=== PATIENT | male | born 1980 | race Caucasian/White ===

== ENCOUNTER 2019-01-24 01:35 | Inpatient (IN) | payer SELFPAY ==
[2019-01-24 02:03] LABS: Bilirubin Negative (Negative); Blood, Urine Large (Negative); Glucose, Urine (Dipstick) Negative (Negative); Leukocyte Large (Negative); Nitrite Positive (Negative); Protein, Urine (Dipstick) 100 mg/dL (Neg-Trace); Urobilinogen 0.2 mg/dL (Less than 2)
[2019-01-24 02:04] LABS: Clarity Turbid (Clear)
[2019-01-24 02:06] LABS: Mean Corpuscular Volume 92.3 fL (78.0-98.0)
[2019-01-24 02:09] LABS: Bacteria/HPF 4+ HPF (None Seen); RBC/HPF Greater than 50 HPF (0-3); Squamous Epithelial None Seen HPF (0-3); WBC/HPF Greater than 50 HPF (0-3)
[2019-01-24] MEDS ORDERED: MEROPENEM 1 GM/50 ML 1 GM in Premix Bag 1 BAG IVPB SCH (02:15)
[2019-01-24 02:26] LABS: ALT (SGPT) 19 U/L (8-55); AST (SGOT) 19 U/L (5-34); Albumin 4.2 g/dL (3.5-5.0); Alkaline Phosphatase 74 U/L (40-150); Anion Gap 14 mmol/L (10-20); BUN (Urea Nitrogen) 14 mg/dL (8.9-20.6); Bilirubin, Total 0.7 mg/dL (0.2-1.2); Calc. Creatinine Clearance 0 mL/min (70-130); Calcium 9.5 mg/dL (7.8-10.44); Carbon Dioxide 23 mmol/L (22-29); Chloride 99 mmol/L (98-107); Estimated GFR-MDRD 80; Globulin 3.5 g/dL (2.4-3.5); Glucose 152 mg/dL (70-105); Potassium 3.5 mmol/L (3.5-5.1); Protein, Total 7.7 g/dL (6.0-8.3); Sodium 132 mmol/L (136-145)
[2019-01-24 02:28] LABS: Band 13 % (5-11); Hemoglobin 12.6 g/dL (14.0-18.0); Lymphocytes 6 % (21-51); MDiff Complete? YES; Mean Corpuscular Hemoglobin 32.3 pg (27.0-31.0); Mean Platelet Volume 8.2 fL (7.4-10.4); Monocytes 8 % (0-10); Neutrophil 73 % (42-75); Platelet Count 282 thou/uL (130-400); Platelet Morphology Comment Appears Adequate; RBC Distribution Width 11.1 % (11.5-14.5); Red Blood Cell (RBC) Count 3.91 mill/uL (4.70-6.10); White Blood Cell (WBC) Count 20.5 thou/uL (4.8-10.8)
[2019-01-24 02:29] LABS: Amphetamine Detected (NotDetected); Barbiturates Screen Not Detected (NotDetected); Benzodiazepine Screen Not Detected (NotDetected); Cocaine Metabolite Screen Not Detected (NotDetected); Medtox Control Line Valid? VALID (VALID); Medtox Reader # READER 4; Methadone Not Detected (NotDetected); Methamphetamine Detected (NotDetected); Opiate Screen Detected (NotDetected); Oxycodone Screen Not Detected (NotDetected); Phencyclidine (PCP) Not Detected (NotDetected); THC/Cannabinoid Screen Not Detected (NotDetected); Tricyclic Screen Not Detected (NotDetected)
[2019-01-24] MEDS ORDERED: Acetaminophen 500 MG TAB ONE ×2 (03:03)
--- NOTE | 2019-01-24 07:40 | ULT ---
PRELIMINARY REPORT/[facility]/EMERGENCY AFTER HOURS PROCEDURE PROCEDURE INFORMATION: Exam: US Scrotum Exam date and time: 01/24/2019 2:24 AM Clinical history: 38 years old, male; Edema; Scrotum pain; Prior surgery; Surgery date: <1 month; Surgery type: Penile reconstruction TECHNIQUE: Imaging protocol: Real-time ultrasound of the scrotum and contents with color Doppler and image documentation. COMPARISON: No relevant prior studies available. FINDINGS: The testicles are within normal limits and relatively symmetrical in size. Right: No visible intratesticular mass. Duplex Doppler evaluation, with color flow and spectral waveform analysis, demonstrates intratesticular arterial and venous blood flow. 2 or 3 small cysts in the head of the right epididymis, largest measures 9 x 5 mm. The right epididymis is otherwise essentially unremarkable in size and appearance. There is a small amount of right scrotal fluid. Left: No visible intratesticular mass. Duplex Doppler evaluation, with color flow and spectral waveform analysis, demonstrates intratesticular arterial and venous blood flow. The left epididymis is normal in size and appearance. There is a small amount of left scrotal fluid. IMPRESSION: 1. No evidence for torsion by Doppler ultrasound. 2. No findings to suggest epididymitis. 3. Small bilateral hydroceles. 4. Other details discussed above. Thank you for allowing us to participate in the care of your patient. Dictated and Authenticated by: José Manuel Mccormick MD 01/24/2019 3:03 AM Central Time ([place] & [place]) SCROTAL SONOGRAM WITH DUPLEX EVALUATION PERFORMED ON AN EMERGENCY BASIS: Date: 01/24/19 Time: 0227 hours HISTORY: Scrotal pain. FINDINGS: Agree with the preliminary report by Dr. Mccormick from [facility]. No evidence of testicular mass or torsion. Good color and spectral Doppler flow. Small bilateral hydroceles. Code QA Transcribed Date/Time: 01/24/2019 7:53 AM
--- NOTE | 2019-01-24 07:50 | RAD ---
Portable frontal chest radiograph: 01/24/2019 COMPARISON: None HISTORY: Pain and fever FINDINGS: Lungs are clear. Heart and mediastinal contours appear within normal limits. IMPRESSION: No acute findings.
[2019-01-24] MEDS ORDERED: Morphine 4 MG/ML VIAL ONE (10:32)
[2019-01-24] MEDS ORDERED: Acetaminophen 500 MG TAB PO PRN (10:54)
[2019-01-24] MEDS ORDERED: Ondansetron ODT 4 MG TAB PO PRN (10:54)
[2019-01-24] MEDS ORDERED: Ondansetron PF 4 MG/2 ML Vial IVP PRN (10:54)
[2019-01-24] MEDS ORDERED: Ketorolac Tromethamine 30 MG/ML VIAL ONE (10:58)
[2019-01-24] MEDS ORDERED: Ketorolac Tromethamine 30 MG/ML VIAL IVP SCH (11:00)
[2019-01-24] MEDS ORDERED: HYDROcodone/Acetaminophen 5/325 mg Tablet ONE (13:09)
[2019-01-24] MEDS ORDERED: cefTRIAXone\\ROCEPHIN 2 GM VIAL ONE (13:09)
[2019-01-24] MEDS: HYDROcodone/Acetaminophen 5/325 mg Tablet PO PRN (13:17)
[2019-01-24] MEDS: cefTRIAXone\\ROCEPHIN 2 GM in Sodium Chloride 0.9% 100 ML IVPB SCH (13:18)
[2019-01-24] MEDS: Morphine 4 MG/ML VIAL SLOW IVP SCH ×3 (15:14→20:41)
[2019-01-24 15:19] VITALS: BMI 24.4
[2019-01-24] MEDS: Ketorolac Tromethamine 30 MG/ML VIAL IVP SCH ×2 (16:00→17:33)
[2019-01-24] MEDS ORDERED: Pharmacy to Dose 1 EACH VANCOMYCIN IVPB PRN (16:28)
--- NOTE | 2019-01-24 16:44 | HP ---
PRIMARY CARE PROVIDER: [facility]. CHIEF COMPLAINT: Penile pain and fever. HISTORY OF PRESENT ILLNESS: This is a 38-year-old male, who is status post penile fracture, status post primary repair at [facility] in [place], [place] in the last 2 weeks. The patient states he was discharged from [facility] with a Campbell catheter in place and given instructions for removal of the catheter in 2 weeks, which fell within the last 4 to 5 days prior to this evaluation. The patient states he was unable to get back to the hospital in [facility] Clinic for removal of the catheter and noted increasing pain in the bladder and scrotum. The patient was evaluated at [facility] on 01/19/2019, and diagnosed with urinary tract infection with indwelling Campbell catheter. The patient was placed on ciprofloxacin, which he states he completed the antibiotic course. The patient had increasing pain in the scrotum, lower pelvis with some drainage noted through his urethra. The patient did not remove the catheter, however, was told to go to the emergency room for evaluation and potential removal of the catheter since he was unable to be seen in followup at [facility]. The patient admitted to fever, discharge from the urethra as well as scrotal pain. In the emergency room, the patient underwent general evaluation, meeting sepsis criteria and placed on aggressive IV fluid hydration in addition to receiving IV meropenem, acetaminophen, and morphine sulfate. The patient continued to have increased pain in the scrotal region and penis requiring further IV morphine sulfate for relief. The patient was referred to the Hospitalist Service for admission. PAST MEDICAL HISTORY: 1. Penile fracture, status post primary repair. 2. Drug abuse with methamphetamine. PAST SURGICAL HISTORY: Status post penile fracture repair with insertion of Campbell catheter. CURRENT MEDICATIONS: Ciprofloxacin, completed antibiotic therapy. ALLERGIES: NO KNOWN DRUG ALLERGIES. FAMILY HISTORY: No inheritable diseases per the patient report. SOCIAL HISTORY: The patient resides in [facility]. Works in building construction. Positive use of methamphetamines. No tobacco or alcohol use. REVIEW OF SYSTEMS: CONSTITUTIONAL: Negative for weight loss or gain, ability to conduct usual activities. SKIN: Negative for rash, itching. EYES: Negative for double vision, pain. ENT/MOUTH: Negative for nose bleeding, neck stiffness, pain, tenderness. CARDIOVASCULAR: Negative for palpitations, dyspnea on exertion, orthopnea. RESPIRATORY: Negative for shortness of breath, wheezing, cough, hemoptysis, fever or night sweats. GASTROINTESTINAL: Negative for poor appetite, abdominal pain, heartburn, nausea, vomiting, constipation, or diarrhea. GENITOURINARY: Negative for urgency, frequency, dysuria, nocturia. MUSCULOSKELETAL: Negative for pain, swelling. NEUROLOGIC/PSYCHIATRIC: Negative for anxiety, depression. ALLERGY/IMMUNOLOGIC: Negative for skin rash, bleeding tendency. Otherwise, negative except as stated per HPI. PHYSICAL EXAMINATION: VITAL SIGNS: On admission, blood pressure 120/62, pulse 118, respiratory rate 22, temperature 99.2 degrees Fahrenheit, and O2 saturation 96% on room air. GENERAL APPEARANCE: This is a 38-year-old male, in moderate distress. Alert, responding to questions. HEENT: Pupils are equal, round, and reactive to light and accommodation. Extraocular muscles are intact. No scleral icterus. No conjunctival injection. Nares patent. OP is clear. Teeth in fair repair. NECK: Supple. No cervical adenopathy. No thyromegaly. No carotid bruits. No JVD appreciated. Cervical spine with full active and passive range of motion. No meningeal signs noted. CHEST: Lungs are clear to auscultation bilaterally. CARDIOVASCULAR: S1 and S2 without noted murmur, rub, or gallop. ABDOMEN: Rounded, soft, nontender, and nondistended. Bowel sounds are positive in all 4 quadrants. There is no hepatosplenomegaly. No abdominal bruits. No rebound or guarding appreciated. GENITOURINARY: Testicles are descended bilaterally. Mild edema of the scrotal sac, left greater than right with tenderness in the epididymal region. Campbell catheter in the urethral meatus without purulence. No erythema. No fluctuance. EXTREMITIES: Warm and dry with fair turgor. No clubbing, cyanosis, or asymmetric edema appreciated. Pulses palpable distally at the dorsalis pedis, posterior tibial, and popliteal arteries bilaterally. Capillary refill less than 2 seconds. NEUROLOGIC: Cranial nerves II through XII are grossly intact. No focal or lateralizing signs appreciated. PERTINENT LABORATORY AND X-RAY FINDINGS: Sodium 132, potassium 3.5, chloride 99, CO2 of 23, BUN 14, creatinine 1.04, estimated GFR of 80, and glucose 152. Lactic acid level ranged between 1.2 to 2.6, calcium 9.5. LFTs within normal limits. CBC showed a white blood cell count of 20.5, hemoglobin 12.6, hematocrit 36.1, platelet count 282 with 73% neutrophils and 13% bands. Urinalysis; positive for blood, nitrites, and leukocyte esterase with greater than 50 wbc's per high-powered field, 4+ bacteria. Urine drug screen dated 01/24/2019, positive for opiates, amphetamines, and methamphetamines. Portable chest x-ray dated 01/24/2019, showed no acute cardiopulmonary process. Testicular ultrasound dated 01/24/2019, showed no evidence for torsion. Small bilateral hydroceles. No intratesticular mass. EKG dated 01/24/2019, by my interpretation shows a sinus tachycardia with heart rates in the low 100s. Normal R-wave progression noted in the precordial leads. Normal axis. No acute ST-T wave changes appreciated. ASSESSMENT AND PLAN: 1. Sepsis secondary to urinary tract infection and indwelling Campbell catheter. The patient will be admitted to the medical unit. We will continue IV fluids with normal saline at 125 mL/h. Continue Rocephin 2 g IV q.24 hours with additional vancomycin 1.5 g IV q.12 hours. Continue sepsis protocol. Await blood and urine culture results. 2. Chronic indwelling Campbell catheter. We will confirm with the Urology Service at [facility] regarding the timing of removal of the catheter. Consider Urology consultation locally after discussion with [facility]rology Department. Continue Campbell catheter for short term. 3. Penile fracture, status post repair. Continue pain control with morphine sulfate 6 mg IV q.4 hours p.r.n. Add Toradol 30 mg IV q.6 hours. [place] 5/325 mg one to two tablets p.o. q.6 hours p.r.n. pain. 4. Substance abuse. Positive for methamphetamines on drug screen. Continue supportive management. We will offer cessation resources prior to discharge. 5. Prophylaxis. SCDs while in bed. Pepcid 20 mg p.o. b.i.d. 6. Code status is full. Surrogate medical decision maker not identified. Job ID: [id number]
[2019-01-24] MEDS: Sodium Chloride 0.9% 1,000 ML IV SCH ×2 (17:20→17:37)
[2019-01-24] MEDS: Vancomycin HCl 1.5 GM in Sodium Chloride 0.9% 250 ML 300 ML IVPB SCH (18:24)
[2019-01-24] MEDS: Famotidine 20 MG TAB PO SCH (20:43)
--- NOTE | 2019-01-24 21:05 | CON ---
DATE OF CONSULTATION: 01/24/2019 CHIEF COMPLAINT: Penile pain, recent penile fracture status post repair. HISTORY OF PRESENT ILLNESS: Mr. Phipps is a 38-year-old gentleman who suffered a penile fracture 2-1/2 weeks ago. He was cared for at [facility] in [place]. He underwent surgical therapy at that time. He was discharged from the hospital with a Campbell catheter in place with instructions to begin an antibiotic 1 week after discharge and to return for catheter removal approximately 2 weeks after discharge. The patient did well for several days. The first few days he states were quite painful. Then for approximately a week, he felt well, although he had minor irritation from the catheter. He then began developing progressive discomfort and pain from the indwelling catheter and has had difficulty tolerating the catheter since then. He has been in the emergency room twice most recently. Early this a.m., he was admitted for pain and fever and elevated white count. The catheter has been draining. He has had some occasional drainage around the catheter. PAST MEDICAL HISTORY: No chronic medical problems. PAST SURGICAL HISTORY: Repair of penile fracture approximately 2 weeks ago. ALLERGIES: NO KNOWN DRUG ALLERGIES. CHRONIC MEDICATIONS: None. SOCIAL HISTORY: The patient has a history of methamphetamine abuse. Denies history of excessive alcohol intake. FAMILY HISTORY: Noncontributory. REVIEW OF SYSTEMS: RESPIRATORY: No shortness of breath. CARDIOVASCULAR: No chest pain or palpitations. GASTROINTESTINAL: Denies chronic constipation or diarrhea. GENITOURINARY: No prior urologic abnormalities. NEUROLOGIC: No history of neurologic dysfunction. PHYSICAL EXAMINATION: VITAL SIGNS: Most recent vital signs, temperature 98, blood pressure 126/82, pulse 86, respiratory rate 18, 99% on room air. HEENT: Normocephalic, atraumatic. NECK: Supple without masses. CHEST: Clear to auscultation CARDIOVASCULAR: No murmurs auscultated. ABDOMEN: Soft, nontender. No palpable masses. Liver or spleen not palpable. No abdominal tenderness noted. : Reveals Campbell catheter in place. There is a palpable mass at the base of the penis , ventral aspect at the peno scrotal junction without erythema. He has well-healed scrotal incision without evidence of infection. Catheter draining turbid urine. He is circumcised. Glans appears healthy. LABORATORY DATA: On admission, white count 20.5, hemoglobin 12.6, hematocrit 36. Urine culture pending. IMPRESSION: Status post repair of penile fracture approximately 2-1/2 weeks ago. His Campbell catheter is in place and it should not be removed until he is deemed infection free and has been okayed by the operating surgeon. I believe this is Dr. Gil in [place], phone #[phone]. RECOMMENDATIONS: 1. Culture-specific antibiotic therapy. 2. Oxybutynin 5 mg p.o. t.i.d. p.r.n. bladder spasm. 3. Levsinex one sublingual p.o. q.8 p.r.n. bladder spasm. 4. We will try and get hold Dr. Gil to discuss his desire re:catheter management Job ID: [id number] [facility]
[2019-01-25] MEDS: Ketorolac Tromethamine 30 MG/ML VIAL IVP SCH ×5 (00:13→23:33)
[2019-01-25] MEDS: Sodium Chloride 0.9% 1,000 ML IV SCH ×3 (00:19→18:20)
[2019-01-25] MEDS: Morphine 4 MG/ML VIAL SLOW IVP SCH ×6 (01:51→20:31)
[2019-01-25 04:32] LABS: Band 4 % (5-11); Eosinophils 1 % (0-10); Hemoglobin 10.7 g/dL (14.0-18.0); Hypochromia SLIGHT = 6-15 cells (100X) (0-5/hpf); Lymphocytes 9 % (21-51); MDiff Complete? YES; Mean Corpuscular HGB CONC 34.5 g/dL (32.0-36.0); Mean Corpuscular Hemoglobin 32.3 pg (27.0-31.0); Mean Corpuscular Volume 93.6 fL (78.0-98.0); Mean Platelet Volume 8.3 fL (7.4-10.4); Monocytes 4 % (0-10); Neutrophil 82 % (42-75); Platelet Count 213 thou/uL (130-400); Platelet Morphology Comment Appears Adequate; Red Blood Cell (RBC) Count 3.31 mill/uL (4.70-6.10); White Blood Cell (WBC) Count 13.3 thou/uL (4.8-10.8)
[2019-01-25 04:41] LABS: Anion Gap 9 mmol/L (10-20); BUN (Urea Nitrogen) 12 mg/dL (8.9-20.6); Calc. Creatinine Clearance 123 mL/min (70-130); Calcium 8.2 mg/dL (7.8-10.44); Carbon Dioxide 24 mmol/L (22-29); Chloride 107 mmol/L (98-107); Estimated GFR-MDRD 82; Glucose 120 mg/dL (70-105); Potassium 3.5 mmol/L (3.5-5.1); Sodium 136 mmol/L (136-145)
[2019-01-25] MEDS: Vancomycin HCl 1.5 GM in Sodium Chloride 0.9% 250 ML 300 ML IVPB SCH (05:17)
[2019-01-25] MEDS: Famotidine 20 MG TAB PO SCH ×2 (08:24→20:31)
[2019-01-25] MEDS: Oxybutynin 5 MG TAB PO SCH (08:24)
[2019-01-25] MEDS: HYDROcodone/Acetaminophen 5/325 mg Tablet PO PRN (09:54)
[2019-01-25] MEDS: cefTRIAXone\\ROCEPHIN 2 GM in Sodium Chloride 0.9% 100 ML IVPB SCH (10:36)
--- NOTE | 2019-01-25 14:50 | PDOC.HOSPP ---
- Subjective Encounter Date: 01/25/19 Encounter Time: 14:49 Subjective: no fever, chills - Objective Vital Signs & Weight: Vital Signs (12 hours) Temp Pulse Resp BP Pulse Ox 01/25/19 11:58 98.2 F 60 17 113/72 92 L 01/25/19 08:15 97.7 F 73 18 145/63 H 95 01/25/19 08:00 95 Weight Weight 195 lb 9 oz I&O: 01/24/19 01/25/19 01/26/19 06:59 06:59 06:59 Intake Total 1046 Output Total 400 Balance 646 Result Diagrams: 01/25/19 03:41 01/25/19 03:41 Hospitalist ROS - Medication Medications: Active Medications Generic Name Dose Route Start Last Admin Trade Name Freq PRN Reason Stop Dose Admin Hydrocodone Bitart/Acetaminophen 2 tab 01/24/19 10:54 01/25/19 09:54 [place] 5/325 PO 2 tab Q4H PRN Administration Severe Pain (7-10) Famotidine 20 mg 01/24/19 21:00 01/25/19 08:24 Pepcid PO 20 mg BID ERICKA Administration Ceftriaxone Sodium 2 gm/ 100 mls @ 200 mls/hr 01/24/19 11:00 01/25/19 10:36 Sodium Chloride IVPB 100 mls Q24HR ERICKA Administration Sodium Chloride 1,000 mls @ 125 mls/hr 01/24/19 11:00 01/25/19 10:25 Normal Saline 0.9% IV 1,000 mls .Q8H ERICKA Administration Vancomycin HCl 1.5 gm/ Sodium 300 mls @ 200 mls/hr 01/24/19 17:00 01/25/19 05 :17 Chloride IVPB 300 mls 0500,1700 ERICKA Administration Ketorolac Tromethamine 30 mg 01/24/19 12:00 01/25/19 12:31 Toradol IVP 01/29/19 12:01 30 mg Q6HR ERICKA Administration Morphine Sulfate 6 mg 01/24/19 13:00 01/25/19 14:09 Morphine SLOW IVP 6 mg Q4HR ERICKA Administration Oxybutynin Chloride 10 mg 01/25/19 09:00 01/25/19 08:24 Ditropan PO 10 mg DAILY ERICKA Administration - Exam Neck: no JVD Heart: RRR Respiratory: CTAB Gastrointestinal: soft, normal bowel sounds Extremities: no edema Hosp A/P (1) Sepsis Code(s): A41.9 - SEPSIS, UNSPECIFIED ORGANISM Status: Acute Qualifiers: Sepsis type: Pseudomonas Sepsis acute organ dysfunction status: without acute organ dysfunction Qualified Code(s): A41.52 - Sepsis due to Pseudomonas (2) UTI (urinary tract infection) Status: Acute Qualifiers: Urinary tract infection type: acute cystitis Hematuria presence: without hematuria Qualified Code(s): N30.00 - Acute cystitis without hematuria (3) Methamphetamine abuse Code(s): F15.10 - OTHER STIMULANT ABUSE, UNCOMPLICATED Status: Acute (4) Campbell catheter in place Code(s): Z96.0 - PRESENCE OF UROGENITAL IMPLANTS Status: Acute - Plan urine C&S-pseudamonas, sens pending- DC vancomycin
[2019-01-25] MEDS ORDERED: Polyethylene Glycol 3350 17 GM Packet PO PRN (15:07)
[2019-01-25] MEDS: Docusate 100 MG CAP PO SCH (20:31)
[2019-01-26] MEDS: Morphine 4 MG/ML VIAL SLOW IVP SCH ×4 (01:51→10:03)
[2019-01-26] MEDS: Sodium Chloride 0.9% 1,000 ML IV SCH ×2 (04:00→16:09)
[2019-01-26] MEDS: Ketorolac Tromethamine 30 MG/ML VIAL IVP SCH ×3 (06:21→17:48)
[2019-01-26] MEDS ORDERED: Morphine 4 MG/ML VIAL SLOW IVP SCH (09:15)
[2019-01-26] MEDS: Docusate 100 MG CAP PO SCH ×2 (10:03→21:40)
[2019-01-26] MEDS: Oxybutynin 5 MG TAB PO SCH (10:03)
[2019-01-26] MEDS: Famotidine 20 MG TAB PO SCH ×2 (10:03→21:40)
--- NOTE | 2019-01-26 11:21 | PDOC.HOSPP ---
- Subjective Encounter Date: 01/26/19 Encounter Time: 11:20 Subjective: still CO pain in penis - Objective Vital Signs & Weight: Vital Signs (12 hours) Temp Pulse Resp BP BP Pulse Ox 01/26/19 08:00 99.6 F 80 18 125/72 92 L 01/26/19 04:00 99.3 F 98 20 133/83 93 L Weight Weight 195 lb 9 oz I&O: 01/25/19 01/26/19 01/27/19 06:59 06:59 06:59 Intake Total 1046 3295 Output Total 400 2975 Balance 646 320 Result Diagrams: 01/25/19 03:41 01/25/19 03:41 Hospitalist ROS - Medication Medications: Active Medications Generic Name Dose Route Start Last Admin Trade Name Freq PRN Reason Stop Dose Admin Hydrocodone Bitart/Acetaminophen 2 tab 01/24/19 10:54 01/25/19 09:54 [place] 5/325 PO 2 tab Q4H PRN Administration Severe Pain (7-10) Docusate Sodium 100 mg 01/25/19 21:00 01/26/19 10:03 Colace PO 100 mg BID ERICKA Administration Famotidine 20 mg 01/24/19 21:00 01/26/19 10:03 Pepcid PO 20 mg BID ERICKA Administration Ceftriaxone Sodium 2 gm/ 100 mls @ 200 mls/hr 01/24/19 11:00 01/25/19 10:36 Sodium Chloride IVPB 100 mls Q24HR ERICKA Administration Ketorolac Tromethamine 30 mg 01/24/19 12:00 01/26/19 06:21 Toradol IVP 01/29/19 12:01 30 mg Q6HR ERICKA Administration Morphine Sulfate 6 mg 01/24/19 13:00 01/26/19 10:03 Morphine SLOW IVP 6 mg Q4HR ERICKA Administration Oxybutynin Chloride 10 mg 01/25/19 09:00 01/26/19 10:03 Ditropan PO 10 mg DAILY ERICKA Administration Polyethylene Glycol 17 gm 01/25/19 15:07 01/25/19 18:22 Miralax PO 17 gm DAILYPRN PRN Administration Constipation - Exam Neck: no JVD Heart: RRR Respiratory: CTAB Gastrointestinal: soft, normal bowel sounds Gastrointestinal - other findings: indwelling holcomb Extremities: no edema Hosp A/P (1) Sepsis Code(s): A41.9 - SEPSIS, UNSPECIFIED ORGANISM Status: Acute Qualifiers: Sepsis type: Pseudomonas Sepsis acute organ dysfunction status: without acute organ dysfunction Qualified Code(s): A41.52 - Sepsis due to Pseudomonas (2) UTI (urinary tract infection) Status: Acute Qualifiers: Urinary tract infection type: acute cystitis Hematuria presence: without hematuria Qualified Code(s): N30.00 - Acute cystitis without hematuria (3) Methamphetamine abuse Code(s): F15.10 - OTHER STIMULANT ABUSE, UNCOMPLICATED Status: Acute (4) Holcomb catheter in place Code(s): Z96.0 - PRESENCE OF UROGENITAL IMPLANTS Status: Acute - Plan urine C&S-pseudamonas, cont rocephin discuss with
[2019-01-26] MEDS: cefTRIAXone\\ROCEPHIN 2 GM in Sodium Chloride 0.9% 100 ML IVPB SCH (12:49)
[2019-01-26] MEDS: HYDROcodone/Acetaminophen 5/325 mg Tablet PO PRN ×2 (15:52→22:42)
--- NOTE | 2019-01-26 16:22 | PDOC.EVN ---
Event Note - Event Note Event Note: so far no responce from surgeon who performed his penile surgery. Dr Bassett reluctant to remove holcomb. changing to cipro for pseudomonas coverage
--- NOTE | 2019-01-26 21:47 | PRG ---
DATE OF SERVICE: SUBJECTIVE: The patient overall is feeling better. He has continued to have low-grade fever. He has not had a bowel movement since his admission. He still has tenderness in his scrotal region. The catheter pain is improved. OBJECTIVE: VITAL SIGNS: T-max 99.9, blood pressure 138/82, pulse 82. ABDOMEN: Soft, nontender. : No erythema. No swelling noted. There is a palpable mass on the ventral aspect of the penis at the base of the scrotum. This is unchanged and it is feed mill tender. There is no erythema. Testicles normal bilaterally with tenderness posterior and inferior aspect bilaterally. Campbell catheter is draining yellow urine. LABORATORY DATA: Urine culture positive for Pseudomonas. IMPRESSION: Pseudomonas urinary tract infection. The patient was on ceftriaxone when he was admitted and is remained on Ceftriaxone until culture results became available today - he has been switched to IV Cipro. He continues to have low-grade fever. Overall, however, he is subjectively improved and his white blood cell count is normal, although he remains with a low-grade fever. I have discussed management of his catheter with his urologist, Dr. Keith Gil, [facility] in [place], [place]. He has recommended voiding cystourethrogram and catheter removal when the urinary tract infection has been cleared. Since appropriate antibiotic based on culture results did not begin until , [facility] sachin be scheduled for Wednesday after at least 3 days of culture specific antibiotic therapy. RECOMMENDATIONS: Continue IV Cipro. Voiding cystourethrogram on Wednesday. If there is no extravasation of urine, then the catheter can be left out. If there is any evidence of extravasation, the catheter will need to be replaced. Job ID: [id number] [facility]
[2019-01-27] MEDS: Ketorolac Tromethamine 30 MG/ML VIAL IVP SCH ×5 (00:45→23:44)
[2019-01-27] MEDS: Docusate 100 MG CAP PO SCH ×2 (08:04→20:31)
[2019-01-27] MEDS: Famotidine 20 MG TAB PO SCH ×2 (08:05→20:31)
[2019-01-27] MEDS: Oxybutynin 5 MG TAB PO SCH (08:05)
--- NOTE | 2019-01-27 19:04 | PDOC.HOSPP ---
- Subjective Encounter Date: 01/27/19 Subjective: reports constipation, denies further hematuria; minimal ambulation; tolerating oral intake; no events overnight - Objective Vital Signs & Weight: Vital Signs (12 hours) Temp Pulse Resp BP Pulse Ox 01/27/19 08:00 98.0 F 58 L 18 128/77 94 L Weight Weight 195 lb 9 oz I&O: 01/26/19 01/27/19 01/28/19 06:59 06:59 06:59 Intake Total 3295 Output Total 2975 1999 Balance 320 -1999 Result Diagrams: 01/25/19 03:41 01/25/19 03:41 Hospitalist ROS - Review of Systems Constitutional: denies: fever Respiratory: denies: shortness of breath Cardiovascular: denies: palpitations Genitourinary: reports: hematuria - Medication Medications: Active Medications Generic Name Dose Route Start Last Admin Trade Name Freq PRN Reason Stop Dose Admin Hydrocodone Bitart/Acetaminophen 1 tab 01/24/19 10:54 01/26/19 22:42 [place] 5/325 PO 1 tab Q4H PRN Administration Moderate Pain (4-6) Docusate Sodium 100 mg 01/25/19 21:00 01/27/19 08:04 Colace PO 100 mg BID ERICKA Administration Famotidine 20 mg 01/24/19 21:00 01/27/19 08:05 Pepcid PO 20 mg BID ERICKA Administration Ciprofloxacin/Dextrose 400 mg/ 200 mls @ 200 mls/hr 01/26/19 21:00 01/27/19 08:04 Device IVPB 200 mls Q12HR ERICKA Administration Ketorolac Tromethamine 30 mg 01/24/19 12:00 01/27/19 17:02 Toradol IVP 01/29/19 12:01 30 mg Q6HR ERICKA Administration Lactulose 30 gm 01/27/19 17:15 01/27/19 17:27 Lactulose PO 01/27/19 19:15 Not Given NOW ERICKA Oxybutynin Chloride 10 mg 01/25/19 09:00 01/27/19 08:05 Ditropan PO 10 mg DAILY ERICKA Administration Polyethylene Glycol 17 gm 01/25/19 15:07 01/25/19 18:22 Miralax PO 17 gm DAILYPRN PRN Administration Constipation - Exam General Appearance: NAD, awake alert Eye: PERRL, anicteric sclera ENT: normocephalic atraumatic, no oropharyngeal lesions Neck: supple, no JVD Heart: RRR, no murmur Respiratory: CTAB, no wheezes, no rales Gastrointestinal: soft, non-tender, non-distended, normal bowel sounds Extremities: no cyanosis, no clubbing Skin: normal turgor, no lesions Neurological: cranial nerve grossly intact, no focal deficits Musculoskeletal: normal tone, normal strength, no muscle wasting Psychiatric: normal affect, normal behavior, A&O x 3 Hosp A/P (1) Methamphetamine abuse Code(s): F15.10 - OTHER STIMULANT ABUSE, UNCOMPLICATED Status: Acute Plan: advised to quit (2) Sepsis Code(s): A41.9 - SEPSIS, UNSPECIFIED ORGANISM Status: Acute Qualifiers: Sepsis type: Pseudomonas Sepsis acute organ dysfunction status: without acute organ dysfunction Qualified Code(s): A41.52 - Sepsis due to Pseudomonas Plan: continue with current antibiotics based on culture sensitivities (3) UTI (urinary tract infection) Status: Acute Qualifiers: Urinary tract infection type: acute cystitis Hematuria presence: without hematuria Qualified Code(s): N30.00 - Acute cystitis without hematuria Plan: continue with holcomb catheter until at least 01/30 after cysto
[2019-01-28] MEDS: Ketorolac Tromethamine 30 MG/ML VIAL IVP SCH ×4 (06:13→20:18)
[2019-01-28] MEDS: Famotidine 20 MG TAB PO SCH ×2 (08:13→20:19)
[2019-01-28] MEDS: Oxybutynin 5 MG TAB PO SCH (08:13)
[2019-01-28] MEDS: Docusate 100 MG CAP PO SCH ×2 (08:13→20:19)
[2019-01-28] MEDS ORDERED: Mag-Al 1200 mg/1200 mg/30 ML UDCUP PO PRN (11:49)
--- NOTE | 2019-01-28 17:27 | PDOC.HOSPP ---
- Subjective Encounter Date: 01/28/19 Subjective: was able to have a bowel movement; tolerating oral intake, he is feeling much better - Objective Vital Signs & Weight: Vital Signs (12 hours) Temp Pulse Resp BP Pulse Ox 01/28/19 12:24 98.2 F 50 L 18 124/73 95 01/28/19 08:00 98.0 F 50 L 18 128/81 96 Weight Weight 195 lb 9 oz I&O: 01/27/19 01/28/19 01/29/19 06:59 06:59 06:59 Intake Total 2249 Output Total 1999 1649 Balance -1999 600 Result Diagrams: 01/25/19 03:41 01/25/19 03:41 Hospitalist ROS - Review of Systems Constitutional: denies: fever, chills Respiratory: denies: shortness of breath Cardiovascular: denies: chest pain Gastrointestinal: denies: abdominal pain - Medication Medications: Active Medications Generic Name Dose Route Start Last Admin Trade Name Freq PRN Reason Stop Dose Admin Hydrocodone Bitart/Acetaminophen 1 tab 01/24/19 10:54 01/26/19 22:42 [place] 5/325 PO 1 tab Q4H PRN Administration Moderate Pain (4-6) Al Hydroxide/Mg Hydroxide 30 ml 01/28/19 11:49 01/28/19 13:45 Maalox PO 30 ml Q6H PRN Administration Indigestion Docusate Sodium 100 mg 01/25/19 21:00 01/28/19 08:13 Colace PO 100 mg BID ERICKA Administration Famotidine 20 mg 01/24/19 21:00 01/28/19 08:13 Pepcid PO 20 mg BID ERICKA Administration Ciprofloxacin/Dextrose 400 mg/ 200 mls @ 200 mls/hr 01/26/19 21:00 01/28/19 08:13 Device IVPB 200 mls Q12HR ERICKA Administration Ketorolac Tromethamine 30 mg 01/24/19 12:00 01/28/19 13:45 Toradol IVP 01/29/19 12:01 30 mg Q6HR ERICKA Administration Oxybutynin Chloride 10 mg 01/25/19 09:00 01/28/19 08:13 Ditropan PO 10 mg DAILY ERICKA Administration Polyethylene Glycol 17 gm 01/25/19 15:07 01/25/19 18:22 Miralax PO 17 gm DAILYPRN PRN Administration Constipation - Exam General Appearance: NAD, awake alert Eye: PERRL, anicteric sclera ENT: normocephalic atraumatic, no oropharyngeal lesions Neck: supple, no JVD Heart: RRR, no murmur Respiratory: CTAB, no wheezes, no rales, no ronchi Gastrointestinal: soft, non-tender, non-distended Extremities: no cyanosis, no clubbing Skin: normal turgor, no lesions Neurological: cranial nerve grossly intact, normal sensation to touch, no weakness, no focal deficits, no new deficit Musculoskeletal: normal tone, normal strength Psychiatric: normal affect, normal behavior, A&O x 3 Hosp A/P (1) Methamphetamine abuse Code(s): F15.10 - OTHER STIMULANT ABUSE, UNCOMPLICATED Status: Acute Plan: counseled to quit (2) Sepsis Code(s): A41.9 - SEPSIS, UNSPECIFIED ORGANISM Status: Acute Qualifiers: Sepsis type: Pseudomonas Sepsis acute organ dysfunction status: without acute organ dysfunction Qualified Code(s): A41.52 - Sepsis due to Pseudomonas Plan: resolving; continue with current IV antibiotics; follow up on final cultures (3) UTI (urinary tract infection) Status: Acute Qualifiers: Urinary tract infection type: acute cystitis Hematuria presence: without hematuria Qualified Code(s): N30.00 - Acute cystitis without hematuria Plan: continue with Cipro
[2019-01-29] MEDS: Ketorolac Tromethamine 30 MG/ML VIAL IVP SCH ×3 (04:14→12:11)
[2019-01-29 05:19] LABS: #Basophils 0.1 thou/uL (0.0-0.2); #Eosinphils 0.5 thou/uL (0.0-0.7); #Lymphocytes 1.6 thou/uL (1.20-3.40); #Monocytes 0.8 thou/uL (0.11-0.59); %Basophils 0.9 % (0.0-1.0); %Eosinophils 6.6 % (0.0-10.0); %Lymphocytes 23.4 % (21.0-51.0); %Monocytes 11.3 % (0.0-10.0); %Neutrophils 57.8 % (42.0-75.0); Hemoglobin 11.6 g/dL (14.0-18.0); Mean Corpuscular Hemoglobin 32.6 pg (27.0-31.0); Mean Platelet Volume 7.7 fL (7.4-10.4); Platelet Count 301 thou/uL (130-400); RBC Distribution Width 10.8 % (11.5-14.5); Red Blood Cell (RBC) Count 3.55 mill/uL (4.70-6.10); White Blood Cell (WBC) Count 6.9 thou/uL (4.8-10.8)
[2019-01-29 05:41] LABS: Anion Gap 11 mmol/L (10-20); BUN (Urea Nitrogen) 9 mg/dL (8.9-20.6); Calc. Creatinine Clearance 156 mL/min (70-130); Calcium 8.9 mg/dL (7.8-10.44); Carbon Dioxide 27 mmol/L (22-29); Chloride 106 mmol/L (98-107); Estimated GFR-MDRD Greater than 90; Glucose 101 mg/dL (70-105); Potassium 3.9 mmol/L (3.5-5.1); Sodium 140 mmol/L (136-145)
[2019-01-29] MEDS: Famotidine 20 MG TAB PO SCH ×2 (08:37→20:06)
[2019-01-29] MEDS: Oxybutynin 5 MG TAB PO SCH (08:37)
[2019-01-29] MEDS: Docusate 100 MG CAP PO SCH ×2 (08:37→20:06)
[2019-01-29] MEDS: HYDROcodone/Acetaminophen 5/325 mg Tablet PO PRN ×3 (08:37→21:14)
--- NOTE | 2019-01-29 21:34 | PDOC.HOSPP ---
- Subjective Encounter Date: 01/29/19 Subjective: constipation has resolved; feels much better; has holcomb catheter; tolerating oral intake - Objective Vital Signs & Weight: Vital Signs (12 hours) Temp Pulse Resp BP Pulse Ox 01/29/19 20:00 98.5 F 50 L 16 147/90 H 96 Weight Weight 195 lb 9 oz I&O: 01/28/19 01/29/19 01/30/19 06:59 06:59 06:59 Intake Total 2250 1700 1810 Output Total 1650 1900 2150 Balance 600 -200 -340 Result Diagrams: 01/29/19 05:08 01/29/19 05:08 Hospitalist ROS - Review of Systems Respiratory: denies: shortness of breath Cardiovascular: denies: chest pain Gastrointestinal: denies: abdominal pain - Medication Medications: Active Medications Generic Name Dose Route Start Last Admin Trade Name Freq PRN Reason Stop Dose Admin Hydrocodone Bitart/Acetaminophen 1 tab 01/24/19 10:54 01/29/19 21:14 [place] 5/325 PO 1 tab Q4H PRN Administration Moderate Pain (4-6) Al Hydroxide/Mg Hydroxide 30 ml 01/28/19 11:49 01/28/19 13:45 Maalox PO 30 ml Q6H PRN Administration Indigestion Docusate Sodium 100 mg 01/25/19 21:00 01/29/19 20:06 Colace PO 100 mg BID ERICKA Administration Famotidine 20 mg 01/24/19 21:00 01/29/19 20:06 Pepcid PO 20 mg BID ERICKA Administration Ciprofloxacin/Dextrose 400 mg/ 200 mls @ 200 mls/hr 01/26/19 21:00 01/29/19 20:06 Device IVPB 200 mls Q12HR ERICKA Administration Oxybutynin Chloride 10 mg 01/25/19 09:00 01/29/19 08:37 Ditropan PO 10 mg DAILY ERICKA Administration Polyethylene Glycol 17 gm 01/25/19 15:07 01/25/19 18:22 Miralax PO 17 gm DAILYPRN PRN Administration Constipation - Exam General Appearance: NAD, awake alert Eye: PERRL, anicteric sclera ENT: normocephalic atraumatic, no oropharyngeal lesions, moist mucosa Neck: supple, symmetric, no JVD, no thyromegaly, no lymphadenopathy, no carotid bruit Heart: RRR, no murmur, no gallops, no rubs, normal peripheral pulses Respiratory: CTAB, no wheezes, no rales, no ronchi, normal chest expansion, no tachypnea, normal percussion Gastrointestinal: soft, non-tender, non-distended, normal bowel sounds, no palpable masses, no hepatomegaly, no splenomegaly, no bruit Extremities: no cyanosis, no clubbing, no edema Skin: normal turgor, no lesions, no rashes Neurological: cranial nerve grossly intact, normal sensation to touch, no weakness, no focal deficits, no new deficit Musculoskeletal: normal tone, normal strength, no muscle wasting Psychiatric: normal affect, normal behavior, A&O x 3 Hosp A/P (1) Methamphetamine abuse Code(s): F15.10 - OTHER STIMULANT ABUSE, UNCOMPLICATED Status: Acute (2) Sepsis Code(s): A41.9 - SEPSIS, UNSPECIFIED ORGANISM Status: Acute Qualifiers: Sepsis type: Pseudomonas Sepsis acute organ dysfunction status: without acute organ dysfunction Qualified Code(s): A41.52 - Sepsis due to Pseudomonas Plan: continue with cipro (3) UTI (urinary tract infection) Status: Acute Qualifiers: Urinary tract infection type: acute cystitis Hematuria presence: without hematuria Qualified Code(s): N30.00 - Acute cystitis without hematuria Plan: continue cipro
[2019-01-30 06:09] LABS: #Basophils 0.1 thou/uL (0.0-0.2); #Eosinphils 0.4 thou/uL (0.0-0.7); #Lymphocytes 1.6 thou/uL (1.20-3.40); #Monocytes 0.9 thou/uL (0.11-0.59); #Neutrophils 3.2 thou/uL (1.40-6.50); %Basophils 1.2 % (0.0-1.0); %Eosinophils 6.3 % (0.0-10.0); %Lymphocytes 25.8 % (21.0-51.0); %Neutrophils 52.8 % (42.0-75.0); Hemoglobin 11.9 g/dL (14.0-18.0); Mean Corpuscular HGB CONC 34.1 g/dL (32.0-36.0); Mean Corpuscular Hemoglobin 31.3 pg (27.0-31.0); Mean Corpuscular Volume 91.9 fL (78.0-98.0); Mean Platelet Volume 7.5 fL (7.4-10.4); Platelet Count 328 thou/uL (130-400); RBC Distribution Width 10.9 % (11.5-14.5); Red Blood Cell (RBC) Count 3.79 mill/uL (4.70-6.10)
[2019-01-30] MEDS: Docusate 100 MG CAP PO SCH ×2 (08:51→19:44)
[2019-01-30] MEDS: Oxybutynin 5 MG TAB PO SCH (08:51)
[2019-01-30] MEDS: Famotidine 20 MG TAB PO SCH ×2 (08:55→19:44)
[2019-01-30] MEDS: HYDROcodone/Acetaminophen 5/325 mg Tablet PO PRN ×3 (08:58→17:55)
--- NOTE | 2019-01-30 10:00 | RAD ---
EXAM: XR Cysto Urethrogram Voiding PROVIDED CLINICAL HISTORY: Status post urethral repair COMPARISON: None FINDINGS: Template Checker radiograph demonstrates a nonspecific bowel gas pattern. Campbell catheter overlies the pelvis. Ph leboliths are seen overlying the pelvis. Contrast material was instilled into the urinary bladder via the Campbell catheter. After 150 cc of contrast material was instilled, the patient was unable to to lerate further distention. The Campbell catheter was removed. The patient was unable to void on the fluoroscopy table. Bilateral vesicoureteral reflux was demonstrated. The patient voided in the restro om. Supine post void frontal radiograph of the abdomen demonstrates minimal post void residual. No obvious extraluminal contrast is evident. IMPRESSION: 1. Limited study as described. 2. Evidence for bilateral vesicoureteral reflux.
[2019-01-30] MEDS ORDERED: ISOVUE-370 76%-LOCM 1 ML ONE (12:39)
[2019-01-30] MEDS ORDERED: diphenhydrAMINE 25 MG CAP PO PRN (21:12)
--- NOTE | 2019-01-31 04:37 | DIS ---
DATE OF ADMISSION: 01/24/2019 DATE OF DISCHARGE: 01/30/2019 DISPOSITION: The patient was discharged home. FINAL DIAGNOSES: 1. Gross hematuria due to cystitis. 2. Status post repair of penile fracture. 3. Constipation. 4. History of methamphetamine abuse. 5. Sepsis due to urinary tract infection due to Pseudomonas. CONDITION: Stable and improved. DIET: Regular diet. MEDICATIONS: Please refer to medication discharge reconciliation form. ACTIVITY: As tolerated. Do not over exert yourself, no strenuous activities. DISCHARGE INSTRUCTIONS: If any fevers, chills, nausea, vomiting, chest pain, shortness of breath, bleeding, swelling, weakness, numbness, seek immediate medical attention. CONSULTANTS: Urology and Dr. Yazan Bassett. FOLLOWUP: With Dr. Yazan Bassett in 2 weeks. SIGNIFICANT LABORATORY AND DIAGNOSTIC STUDIES: Includes a voiding cystourethrogram which showed evidence of bilateral vesicoureteral reflux and there was minimal postvoid residual with no obvious contrast extravasation. BRIEF HOSPITAL COURSE: Eldon Phipps is a pleasant 38-year-old male who had presented to the emergency room with complaints of penile pain as well as fevers, found to have sepsis due to urinary tract source, for which urine culture showed Pseudomonas. He was then admitted to the hospital, rehydrated with intravenous IV fluids and IV antibiotics, was found to have gross hematuria as he had a chronic indwelling catheter that was confirmed and one by the urologist service at [facility] after he had a penile fracture, status post repair, for which Urology at that facility was consulted. Urology at this facility was also consulted who followed the patient. A cystogram was done earlier today and there was no extravasation of any contrast. Thus the Campbell catheter was removed. He has been ambulatory, tolerating oral intake. He will continue with ciprofloxacin for treatment of Pseudomonas. He is nontoxic appearing, tolerating oral intake. On the day of discharge, during my [id number] meeting with the patient, I discussed all discharge instructions including the need for compliance with medication, followup and when to return to the emergency room for which he has verbalized understanding. TIME SPENT: Total discharge time spent 35 minutes. Job ID: [id number]
[2019-01-31] MEDS: Oxybutynin 5 MG TAB PO SCH (08:28)
[2019-01-31] MEDS: Famotidine 20 MG TAB PO SCH (08:29)
[2019-01-31] MEDS: Docusate 100 MG CAP PO SCH (08:30)
--- NOTE | 2019-01-31 09:58 | PRG ---
DATE OF SERVICE: 01/30/2019 SUBJECTIVE: The patient is awake and alert. He still has tenderness in the left testicle. He has been voiding well since his catheter was removed earlier today. There is some mild burning on urination. He has been eating well. OBJECTIVE: VITAL SIGNS: T-max 98.3, blood pressure 130/73, and pulse 65. ABDOMEN: Soft and nontender. No palpable masses. : He has palpable mass still present in the ventral aspect of the penis subcutaneous. There is no erythema in the scrotum. He has tenderness in the left testicle. No palpable mass. DIAGNOSTIC DATA: Voiding cystourethrogram, no obvious extravasation noted. Interestingly, he was noted to have bilateral vesicoureteral reflux. ASSESSMENT: 1. Status post repair of urethral injury after penile fracture performed by Dr. Keith Gil in [place] approximately three weeks ago. He is now status post voiding cystourethrogram without leak. 2. Pseudomonas urinary tract infection. PLAN: 1. Okay for discharge home from urologic standpoint. 2. Cipro for two weeks. 3. Follow up with Dr. Gil as previously scheduled. Job ID: [id number]
[2019-01-31] MEDS: HYDROcodone/Acetaminophen 5/325 mg Tablet PO PRN (10:00)
[2019-01-31 12:22] VITALS: BP 120/75; TEMP 98.2
--- NOTE | 2019-02-01 07:11 | PQF ---
NICK DOUGLASS II FELIPE, [id number] CLINICAL DOCUMENTATION CLARIFICATION FORM: POST DISCHARGE Addendum to original discharge summary date: ____ Late entry note date: __ DATE: 02-01-2019 ATTN:Nick Wills Please exercise your independent, professional judgment in responding to the clarification form. Clinical indicators are provided on the bottom of this form for your review Can you please specify if the patient indwelling holcomb or the penile fracture repair was the cause UTI? Please check appropriate box(s): [ X] UTI is a complication of indwelling holcomb catheter [ ] UTI is not complication of indwelling holcomb catheter [ ] UTI is a complication of penile fracture repair [ ] UTI is not a complication of penile fracture repair [ ] Other diagnosis please specify: [ ] Unable to determine CLINICAL INDICATORS: HP 01/[address] Rosario Sepsis secondary to UTI and indwelling holcomb catheter Consult 01/[address] Bassett developing progressive discomfort and pain from the indwelling catheter and has difficulty tolerating the catheter DS 01/[address] Funez Gross hematuria due to cystitis DS 01/[address] Funez Sepsis due to UTI due to Pseudomonas DS 01/[address] Funez Cystogram today and there was no extravasation of any contrast RISK FACTORS: HP 01/24 Dr. Rosario- Status post penile repair of fracture HP 01/24 Dr. Rosario- chronic indwelling holcomb catheter TREATMENT: HP 01/24 Dr. Rosario- IV fluids normal saline 125ml/hr HP 01/24 Dr. Rosario- Continue sepsis protocol HP 01/24 Dr. Rosario-Rocephin IV 2gm q24 H HP 01/24 Dr. Rosario- Morphine sulfate 6 mg IV HP 01/24 Dr. Rosario- Continue sepsis protocol PN 01/25- Urine C andS Imaging 01/30- Cystourethrogram (This form is maintained as a part of the permanent medical record) 2014 [employer]. All Rights Reserved [email or web address] [not [email or web address]] [email or web address]
== END 2019-01-31 13:33 | disposition home or self-care (01) | DRG 698 ==
LOC: ERS 01:35 → ERHOLD 04:00 → T4-B 15:06
PROVIDERS: ADMIT Hospitalist; ATTEND Hospitalist
DX: T83.511A Infection and inflammatory reaction due to indwelling urethral catheter, initial encounter (principal); A41.52 Sepsis due to Pseudomonas; K59.00 Constipation, unspecified; N30.91 Cystitis, unspecified with hematuria; F15.10 Other stimulant abuse, uncomplicated; Y84.6 Urinary catheterization as the cause of abnormal reaction of the patient, or of later complication, without mention of misadventure at the time of the procedure
CPT/HCPCS: 36415; 51600; 71045; 74455; 76870; 80048; 80053; 80306; 81003; 81015; 83605; 85007; 85025; 85027; 87040; 87077; 87086; 87186; 93005; 93976; 96361; 96365; 96375; J0696; J0744; J1885; J2185; J2270; J3370; J3490; J7050; Q0163; Q9966